=== PATIENT | female | born 1965 | race American Indian/Alaskan Native ===

== ENCOUNTER 2021-10-04 04:39 | Inpatient (IN) | payer MEDICARE, MEDICAID ==
[2021-10-04 07:50] LABS: Basophils % (Auto) 0.2 % (0.0-1.8); Eosinophils # (Auto) 0.1 K/mm3 (0.0-0.4); Eosinophils % (Auto) 1.4 % (0.0-4.3); Hematocrit 26.9 % (30.3-42.9); Hemoglobin 9.2 gm/dl (10.1-14.3); Lymphocytes # (Auto) 1.2 K/mm3 (1.2-5.4); Mean Corpuscular HGB Conc 34 % (30-34); Mean Corpuscular Volume 95 fl (79-97); Monocytes # (Auto) 0.5 K/mm3 (0.0-0.8); Monocytes % (Auto) 10.2 % (0.0-7.3); Platelet Count 162 K/mm3 (140-440); Red Blood Count 2.82 M/mm3 (3.65-5.03); Red Cell Distribution Width 15.5 % (13.2-15.2)
[2021-10-04 08:08] LABS: Albumin 3.9 g/dL (3.9-5); Calcium 9.2 mg/dL (8.4-10.2)
--- NOTE | 2021-10-04 15:21 | Emergency Department Report ---
HPI - General Chief Complaint: Medical Clearance PUI?: No - HPI HPI: This patient is a 56-year-old female with a history of obesity, end-stage renal disease on hemodialysis Wednesday, with left upper extremity AV fistula, presents requesting to undergo dialysis. Patient reports she is visiting from [facility] and has been here for several days. 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 However patient states "they messed up the paperwork and sent the wrong information and so I have not been able to get dialysis." She reports she last underwent dialysis 4 days ago, on Thursday, September 30, 2021. She denies any chest pain shortness of breath difficulty breathing or palpitations. No abdominal pain. No lightheadedness or dizziness. Review of systems otherwise negative. Pain 0 out of 10. ED Past Medical Hx - Past Medical History Previous Medical History?: Yes Hx Hypertension: No Hx Renal Disease: Yes (End-stage renal disease on hemodialysis Wednesday) Additional medical history: "Hypotension" per patient's report - Surgical History Past Surgical History?: No - Family History Family history: no significant - Social History Smoking Status: Never Smoker Substance Use Type: None ED Review of Systems ROS: Stated complaint: NEED DIALYSIS Other details as noted in HPI Comment: All other systems reviewed and negative Constitutional: no symptoms reported Physical Exam - Physical Exam Vital Signs: Vital Signs 10/04/21 10/04/21 10/04/21 04:41 14:32 14:33 Temperature 97.9 F Pulse Rate 106 H Respiratory 18 Rate Blood Pressure 113/82 Blood Pressure 109/49 [Right] O2 Sat by Pulse 100 99 99 Oximetry General: Gen: pt is well appearing, no acute distress HEENT: Normocephalic atraumatic pupils equally round and reactive to light extraocular muscles intact sclera anicteric Neck: Full range of motion, no midline spinal tenderness palpation, no JVD, no carotid bruits, no nuchal rigidity CVS: S1-S2 regular rate and rhythm with no gallops rubs or murmurs, chest wall nontender Pulmonary: Mild rhonchi auscultated on lung examination bilaterally Abdomen: Soft nondistended nontender no guarding or rebound tenderness, no palpable deformities or step-offs, normal active bowel sounds, no hepatosplenomegaly, no pulsatile masses : Deferred Extremities: No cyanosis no clubbing no edema, intact distal peripheral pulses, Integumentary: Skin normal, no petechia no purpura no abscess no lacerations no evidence of trauma no evidence of infection Neuro: Patient is awake alert and oriented to person place time situation, mentating well, cranial nerves II through XII intact, no focal neurodeficits, sensation grossly tact Psych: Calm cooperative, mood affect normal ED Course Vital Signs 10/04/21 10/04/21 10/04/21 04:41 14:32 14:33 Temperature 97.9 F Pulse Rate 106 H Respiratory 18 Rate Blood Pressure 113/82 Blood Pressure 109/49 [Right] O2 Sat by Pulse 100 99 99 Oximetry - Reevaluation(s) Reevaluation #1: 10/04/21 15:21 Gen: pt is well appearing, no acute distress, speaking in full sentences, no d rooling no stridor no respiratory distress, breathing unlabored, nontoxic- appearing HEENT: Normocephalic atraumatic pupils equally round and reactive to light extraocular muscles intact sclera anicteric Neck: Full range of motion, no midline spinal tenderness palpation, no JVD, no carotid bruits, no nuchal rigidity CVS: S1-S2 regular rate and rhythm with no gallops rubs or murmurs, chest wall nontender Pulmonary: Clear to auscultation bilaterally, no wheezes rales or rhonchi Abdomen: Soft nondistended nontender no guarding or rebound tenderness, no palpable deformities or step-offs, normal active bowel sounds, no hepatosplenomegaly, no pulsatile masses : Deferred Extremities: No cyanosis no clubbing no edema, intact distal peripheral pulses, Integumentary: Skin normal, no petechia no purpura no abscess no lacerations no evidence of trauma no evidence of infection Neuro: Patient is awake alert and oriented to person place time situation, mentating well, cranial nerves II through XII intact, no focal neurodeficits, sensation grossly tact Psych: Calm cooperative, mood affect normal - Consultations Consultation #1: 10/04/21 16:24; Case reviewed via telephone with admitting hospitalist Dr. Lisa Lechuga. He verbalized agreement to admit the patient to the hospitalist service for further management ED Medical Decision Making - Lab Data Result diagrams: 10/04/21 07:23 10/04/21 07:23 - Radiology Data Radiology results: report reviewed - Medical Decision Making 56-year-old obese female with a history of end-stage renal disease on hemodialysis, Wednesday, presents requesting hemodialysis st ating that she [place] and has not undergone dialysis for several days. Vital stable. That was already on the chart so abnormal but that there patient is well-appearing on examination. Serum labs as well as chest x- ray results reviewed. Patient will need to undergo hemodialysis. Case was discussed with admitting hospitalist, Dr. Gonzalez. He verbalized agreement to accept the patient to the hospital service for definitive management. Critical care attestation.: If time is entered above; I have spent that time in minutes in the direct care of this critically ill patient, excluding procedure time. ED Disposition Clinical Impression: Hyperkalemia, ESRD (end stage renal disease) on dialysis, Pulmonary vascular congestion Disposition: ADMITTED INPATIENT Is pt being admited?: Yes Does the pt Need Aspirin: No Condition: Stable Referrals: SHWETA CORTES MD [Primary Care Provider] - 3-5 Days
--- NOTE | 2021-10-04 15:59 | XRay Report ---
CHEST 1 VIEW 10/04/2021 3:25 PM INDICATION / CLINICAL INFORMATION: esrd on h/d; eval for pleural effusions. COMPARISON: None available. FINDINGS: SUPPORT DEVICES: None. HEART / MEDIASTINUM: No significant abnormality. LUNGS / PLEURA: There is increase in interstitial markings bilaterally. No pneumothorax. No significa nt pleural fluid is identified. ADDITIONAL FINDINGS: No significant additional findings. IMPRESSION: 1. There is increase in interstitial markings bilaterally consistent with edema. No significant pleur al effusion is identified. Signer Name: Franko Haywood MD Signed: 10/04/2021 3:55 PM Workstation Name: [id number]
--- NOTE | 2021-10-04 20:43 | History and Physical Report ---
History of Present Illness Date of examination: 10/04/21 Date of admission: 10/04/2022 Chief complaint: Shortness of breath for 2 days History of present illness: This patient is a 56-year-old female with a history of obesity, end-stage renal disease on hemodialysis Wednesday, with left upper extremity AV fistula, presents requesting to undergo dialysis. Patient reports she is visiting from [facility] and has been here for several days. She states that her breaker mechanic had arranged for her to undergo dialysis at a local center here in [place]. However patient states "they messed up the paperwork and sent the wrong information and soshe has not been able to get dialysis." She reports she last underwent dialysis 4 days ago, on Thursday, September 30, 2021. She denies any chest pain shortness of breath difficulty breathing or palpitations. No abdominal pain. No lightheadedness or dizziness. Review of systems otherwise negative. Pain 0 out of 10. - Past Medical History --Hypertension: No --Renal Disease: Yes (End-stage renal disease on hemodialysis Wednesday) --Additional medical history: "Hypotension" per patient's report - Surgical History --Past Surgical History?: No - Family History --Family history: no significant - Social History --Smoking Status: Never Smoker --Substance Use Type: None Review of Systems ROS: --Stated complaint: NEED DIALYSIS --Other details as noted in HPI --Comment: All other systems reviewed and negative --Constitutional: no symptoms reported Medications and Allergies Allergies Allergy/AdvReac Type Severity Reaction Status Date / Time No Known Allergies Allergy Verified 10/04/21 04:46 Exam - Constitutional Vitals: Temp Pulse Resp BP Pulse Ox 98.0 F 67 16 113/73 100 10/04/21 19:30 10/04/21 19:30 10/04/21 19:30 10/04/21 19:30 10/04/21 19:30 General appearance: Present: no acute distress, well-nourished - EENT Eyes: Present: PERRL ENT: hearing intact, clear oral mucosa - Neck Neck: Present: supple, normal ROM - Respiratory Respiratory effort: normal Respiratory: bilateral: CTA - Cardiovascular Heart rate: 78 Rhythm: regular Heart Sounds: Present: S1 & S2. Absent: rub, click - Extremities Extremities: no ischemia, pulses intact, pulses symmetrical, No edema Peripheral Pulses: within normal limits - Abdominal General gastrointestinal: Present: soft, non-tender, non-distended, normal bowel sounds Female genitourinary: Present: normal - Integumentary Integumentary: Present: clear, warm, dry - Musculoskeletal Musculoskeletal: gait normal, strength equal bilaterally - Psychiatric Psychiatric: appropriate mood/affect, intact judgment & insight - Neurologic Neurologic: CNII-XII intact, moves all extremities Results - Labs CBC & Chem 7: 10/04/21 07:23 10/04/21 07:23 Labs: Laboratory Last Values WBC 5.1 K/mm3 (4.5-11.0) 10/04/21 07: RBC 2.82 M/mm3 (3.65-5.03) L 10/04/21 07: Hgb 9.2 gm/dl (10.1-14.3) L 10/04/21 07: Hct 26.9 % (30.3-42.9) L 10/04/21 07: MCV 95 fl (79-97) 10/04/21 07:23 MCH 33 pg (28-32) H 10/04/21 07:23 MCHC 34 % (30-34) 10/04/21 07: RDW 15.5 % (13.2-15.2) H 10/04/21 07:23 Plt Count 162 K/mm3 (140-440) 10/04/21 07:23 Lymph % (Auto) 24.0 % (13.4-35.0) 10/04/21 07:23 [place] % (Auto) 10.2 % (0.0-7.3) H 10/04/21 07:23 Eos % (Auto) 1.4 % (0.0-4.3) 10/04/21 07:23 Baso % (Auto) 0.2 % (0.0-1.8) 10/04/21 07: Lymph # (Auto) 1.2 K/mm3 (1.2-5.4) 10/04/21 07:23 [place] # (Auto) 0.5 K/mm3 (0.0-0.8) 10/04/21 07:23 Eos # (Auto) 0.1 K/mm3 (0.0-0.4) 10/04/21 07:23 Baso # (Auto) 0.0 K/mm3 (0.0-0.1) 10/04/21 07:23 Seg Neutrophils % 64.2 % (40.0-70.0) 10/04/21 07:23 Seg Neutrophils # 3.3 K/mm3 (1.8-7.7) 10/04/21 07:23 Sodium 138 mmol/L (137-145) 10/04/21 07:23 Potassium 5.6 mmol/L (3.6-5.0) H 10/04/21 07:23 Chloride 90.4 mmol/L (98-107) L 10/04/21 07:23 Carbon Dioxide 25 mmol/L (22-30) 10/04/21 07:23 Anion Gap 28 mmol/L 10/04/21 07:23 BUN 113 mg/dL (7-17) H 10/04/21 07:23 Creatinine 14.5 mg/dL (0.6-1.2) H 10/04/21 07:23 Estimated GFR 3 ml/min 10/04/21 07:23 BUN/Creatinine Ratio 8 % 10/04/21 07:23 Glucose 87 mg/dL (65-100) 10/04/21 07:23 Calcium 9.2 mg/dL (8.4-10.2) 10/04/21 07:23 Total Bilirubin 0.30 mg/dL (0.1-1.2) 10/04/21 07:23 AST 13 units/L (5-40) 10/04/21 07:23 ALT 9 units/L (7-56) 10/04/21 07:23 Alkaline Phosphatase 124 units/L (35-129) 10/04/21 07:23 Total Protein 7.6 g/dL (6.3-8.2) 10/04/21 07:23 Albumin 3.9 g/dL (3.9-5) 10/04/21 07:23 Albumin/Globulin Ratio 1.1 % 10/04/21 07:23 Short CBC 10/04/21 Range/Units 07: WBC 5.1 (4.5-11.0) K/mm3 Hgb 9.2 L (10.1-14.3) gm/dl Hct 26.9 L (30.3-42.9) % Plt Count 162 (140-440) K/mm3 BMP 10/04/21 07:23 Sodium 138 Potassium 5.6 H Chloride 90.4 L Carbon Dioxide 25 BUN 113 H Creatinine 14.5 H Glucose 87 Calcium 9.2 Liver Function 10/04/21 Range/Units 07:23 Total Bilirubin 0.30 (0.1-1.2) mg/dL AST 13 (5-40) units/L ALT 9 (7-56) units/L Alkaline Phosphatase 124 (35-129) units/L Albumin 3.9 (3.9-5) g/dL Assessment and Plan Advance Directives: Yes (Full code) VTE prophylaxis?: Chemical Plan of care discussed with patient/family: Yes - Patient Problems (1) Hyperkalemia Current Visit: Yes Status: Acute Plan to address problem: Patient was given calcium gluconate and oral Kayexalate in the emergency room Patient due for hemodialysis in a.m. Nephrology consulted (2) ESRD (end stage renal disease) on dialysis Current Visit: Yes Status: Chronic Plan to address problem: Hemodialysis Nephrology consulted (3) Hypertension Current Visit: Yes Status: Chronic Qualifiers: Hypertension type: primary hypertension Qualified Code(s): I10 - Essential (primary) hypertension Plan to address problem: Continue antihypertensives and adjust medications (4) Anemia Current Visit: Yes Status: Chronic Qualifiers: Anemia type: due to chronic kidney disease Plan to address problem: Anemia of chronic disease Epogen as per nephrology (5) DVT prophylaxis Current Visit: Yes Status: Acute Plan to address problem: On heparin and GI prophylaxis (6) Advance care planning Current Visit: Yes Status: Acute Plan to address problem: Disease education conducted, care plan discussed, diagnosis discussed, prognosis discussed, patient acknowledges understanding and agrees with care plan. +30 minutes.
[2021-10-04] MEDS ORDERED: ONDANSETRON 4 MG/2 ML INJ IV PRN (20:46)
[2021-10-04] MEDS ORDERED: ACETAMINOPHEN 325 MG TAB PO PRN (20:46)
[2021-10-04] MEDS ORDERED: MORPHINE 2 MG/1 ML INJ IV PRN (20:53)
[2021-10-04] MEDS ORDERED: oxyCODONE /ACETAMINOPHEN 5-325MG TAB PO PRN (20:53)
[2021-10-04] MEDS ORDERED: SODIUM POLYSTYRENE 15 GM/60 ML ORAL LIQD PO ONE (21:06)
[2021-10-04] MEDS: CALCIUM GLUCONATE 2,000 MG in SODIUM CHLORIDE 0.9% 100 ML IV ONE ×2 (22:45→23:40)
[2021-10-05] MEDS: HEPARIN 5,000 UNIT/1 ML VIAL SUB-Q SCH ×3 (00:05→21:07)
[2021-10-05 06:45] LABS: Calcium 8.9 mg/dL (8.4-10.2)
--- NOTE | 2021-10-05 09:20 | Consultation ---
History of Present Illness - Reason for Consult Consult date: 10/05/21 end stage renal disease - History of Present Illness This is a 56 year old female who presented to the E.R for hemodialysis. Patient reports that she came to [place] from [place] on Wednesday without properly having dialysis arrangement made here in [place] at [facility]. Now patient presents to E.R for dialysis. Patient states her last dialysis was on Wednesday in [place]. Patient is currently stable, no edema and no shortness of breath. States has been on HD for 8 years now due to Hypertension. Has functional Left AVF. We are being consulted for management of this patient's ESRD. Past History Past Medical History: ESRD, hypertension Past Surgical History: Other (Left AVF placement) Social history: no significant social history Family history: no significant family history Medications and Allergies Allergies Allergy/AdvReac Type Severity Reaction Status Date / Time No Known Allergies Allergy Verified 10/04/21 04:46 Active Meds: Active Medications Acetaminophen (Acetaminophen 325 Mg Tab) 650 mg PO Q4H PRN PRN Reason: Pain MILD(1-3)/Fever >100.5/ZUNIGA Heparin Sodium (Porcine) (Heparin 5,000 Unit/1 Ml Vial) 5,000 unit SUB-Q Q12HR [facility] Last Admin: 10/05/21 00:05 Dose: 5,000 unit Morphine Sulfate (Morphine 2 Mg/1 Ml Inj) 2 mg IV Q4H PRN PRN Reason: Pain, Moderate (4-6) Ondansetron HCl (Ondansetron 4 Mg/2 Ml Inj) 4 mg IV Q8H PRN PRN Reason: Nausea And Vomiting Oxycodone/Acetaminophen (Oxycodone /Acetaminophen 5-325mg Tab) 1 tab PO Q6H PRN PRN Reason: Pain, Moderate (4-6) Sodium Chloride (Sodium Chloride 0.9% 10 Ml Flush Syringe) 10 ml IV BID [facility] Last Admin: 10/04/21 23:41 Dose: Not Given Sodium Chloride (Sodium Chloride 0.9% 10 Ml Flush Syringe) 10 ml IV PRN PRN PRN Reason: LINE FLUSH Review of Systems Constitutional: no weight loss, no weight gain, no fever, no chills, no sweats Ears, nose, mouth and throat: no ear pain, no ear discharge, no tinnitis, no decreased hearing, no nose pain, no nasal congestion, no nasal discharge Cardiovascular: no chest pain, no orthopnea, no palpitations, no rapid/irregular heart beat, no edema, no syncope, no lightheadedness, no shortness of breath Respiratory: no cough with sputum, no excessive sputum, no hemoptysis, no shortness of breath Gastrointestinal: no abdominal pain, no nausea, no vomiting, no diarrhea, no constipation, no change in bowel habits Genitourinary Female: no pelvic pain, no flank pain, no menorrhagia, no dysuria, no urinary frequency, no urgency Rectal: no pain, no incontinence, no bleeding Musculoskeletal: no neck stiffness, no neck pain, no shooting arm pain, no arm numbness/tingling, no low back pain Integumentary: no rash, no pruritis, no redness, no sores, no wounds, no jaundice Neurological: no transient paralysis, no paralysis, no weakness, no parathesias, no numbness, no tingling, no seizures Psychiatric: no anxiety, no memory loss, no change in sleep habits, no sleep disturbances, no insomnia, no hypersomnia, no change in appetite Endocrine: no cold intolerance, no heat intolerance, no polyphagia, no excessive thirst, no polydipsia, no polyuria Hematologic/Lymphatic: no easy bruising, no easy bleeding Exam - Vital Signs Vital signs: Vital Signs Temp Pulse Resp BP Pulse Ox 97.9 F 106 H 18 113/82 100 10/04/21 04:41 10/04/21 04:41 10/04/21 04:41 10/04/21 04:41 10/04/21 04:41 - General Appearance General appearance: well-developed, appears stated age EENT: ATNC, PERRL, hearing intact, vision intact Neck: Present: neck supple, trachea midline Respiratory: Decreased Breath Sounds Heart: S1S2 Gastrointestinal: Present: normoactive bowel sounds Integumentary: warm and dry Neurologic: alert and oriented x3 Musculoskeletal: Present: other (No edema) Results - Lab Results 10/04/21 07:23 10/05/21 05:16 Most recent lab results Calcium 8.9 mg/dL (8.4-10.2) 10/05/21 05:16 Assessment and Plan Assessment: End Stage Renal Disease Hypertension Anemia Mild Hyperkalemia, Improved Plan: Hemodialysis ordered for tomorrow morning for UF and clearance Potassium better today at 5.1-ordered Kayexlate 15 gram po x 1 today Low potassium diet Fluid restriction of 1 liter per day Renally dose medications Obtain daily weights Monitor I/O's daily Assess dialysis needs daily Consulted case management to assist patient in completing arrangements for outpatient HD Plan of care reviewed by Dr. Gao
[2021-10-05] MEDS ORDERED: SODIUM POLYSTYRENE 15 GM/60 ML ORAL LIQD PO ONE (10:00)
[2021-10-05] MEDS: MIDODRINE 5 MG TAB PO SCH ×2 (11:06→16:35)
--- NOTE | 2021-10-05 17:02 | Progress Note ---
Assessment and Plan Assessment and plan: #Hyperkalemiaimproving Potassium 5.6--> 5.1. Improvement after medical management. Should improve when patient undergoes hemodialysis. Continue to monitor with repeat BMP. #ESRD on hemodialysis -Access: Left upper extremity fistula -Outpatient schedule: Unknown -HD center: Unknown -Nephrology consulted; appreciate recs. -Renally dose medications and avoid nephrotoxic drugs. Renal diet. #Anemia of chronic disease Hemoglobin currently stable. Transfuse if hemoglobin <7 or patient becomes symptomatic. #Hypertension Continue home antihypertensives #Obesity #Weight loss counseling #Exercise counseling - BMI 31.6 - Counseled patient on the importance of weight loss, incorporating exercise, and dietary changes (lean meats, fresh fruits and vegetables, and water intake). Patient expresses understanding. - Time: +15 min #Advanced care planning -Disease education conducted, care plan discussed, diagnoses discussed, prognosis discussed, and patient acknowledges understanding with care plan -Time: +30 min #Discharge planning - Patient is pending hemodialysis. - Case management has been made aware. - Discharge is tentatively tomorrow after hemodialysis. Disposition Plan: Continue medical management Total Time Spent with Patient (Minutes): 45 min History Interval history: No acute events overnight. Hospitalist Physical - Constitutional Vitals: Temp Pulse Resp BP Pulse Ox 97.8 F 67 18 94/60 92 10/05/21 04:54 10/05/21 13:00 10/05/21 09:53 10/05/21 08:19 10/05/21 09:53 General appearance: Present: no acute distress, well-nourished, obese - EENT Eyes: Present: PERRL, EOM intact ENT: hearing intact, clear oral mucosa, dentition normal - Neck Neck: Present: supple, normal ROM - Respiratory Respiratory effort: normal Respiratory: bilateral: CTA - Cardiovascular Rhythm: regular Heart Sounds: Present: S1 & S2 - Extremities Extremities: no ischemia, pulses intact, pulses symmetrical, No edema, normal temperature, normal color, abnormal (LUE AV fistula with palpable thrill) Peripheral Pulses: within normal limits - Abdominal General gastrointestinal: soft, non-tender, non-distended, normal bowel sounds - Integumentary Integumentary: Present: clear, warm, dry - Psychiatric Psychiatric: appropriate mood/affect, intact judgment & insight, memory intact, cooperative - Neurologic Neurologic: CNII-XII intact, moves all extremities - Allied Health Allied health notes reviewed: nursing Results - Labs CBC & Chem 7: 10/04/21 07:23 10/05/21 05:16 Labs: Laboratory Last Values WBC 5.1 K/mm3 (4.5-11.0) 10/04/21 07:23 RBC 2.82 M/mm3 (3.65-5.03) L 10/04/21 07:23 Hgb 9.2 gm/dl (10.1-14.3) L 10/04/21 07:23 Hct 26.9 % (30.3-42.9) L 10/04/21 07:23 MCV 95 fl (79-97) 10/04/21 07:23 MCH 33 pg (28-32) H 10/04/21 07:23 MCHC 34 % (30-34) 10/04/21 07:23 RDW 15.5 % (13.2-15.2) H 10/04/21 07:23 Plt Count 162 K/mm3 (140-440) 10/04/21 07:23 Lymph % (Auto) 24.0 % (13.4-35.0) 10/04/21 07:23 [place] % (Auto) 10.2 % (0.0-7.3) H 10/04/21 07:23 Eos % (Auto) 1.4 % (0.0-4.3) 10/04/21 07:23 Baso % (Auto) 0.2 % (0.0-1.8) 10/04/21 07:23 Lymph # (Auto) 1.2 K/mm3 (1.2-5.4) 10/04/21 07:23 [place] # (Auto) 0.5 K/mm3 (0.0-0.8) 10/04/21 07:23 Eos # (Auto) 0.1 K/mm3 (0.0-0.4) 10/04/21 07:23 Baso # (Auto) 0.0 K/mm3 (0.0-0.1) 10/04/21 07:23 Seg Neutrophils % 64.2 % (40.0-70.0) 10/04/21 07:23 Seg Neutrophils # 3.3 K/mm3 (1.8-7.7) 10/04/21 07:23 Sodium 140 mmol/L (137-145) 10/05/21 05:16 Potassium 5.1 mmol/L (3.6-5.0) H 10/05/21 05:16 Chloride 94.2 mmol/L (98-107) L 10/05/21 05:16 Carbon Dioxide 23 mmol/L (22-30) 10/05/21 05:16 Anion Gap 28 mmol/L 10/05/21 05:16 BUN 120 mg/dL (7-17) H 10/05/21 05:16 Creatinine 16.2 mg/dL (0.6-1.2) H 10/05/21 05:16 Estimated GFR 3 ml/min 10/05/21 05:16 BUN/Creatinine Ratio 7 % 10/05/21 05:16 Glucose 94 mg/dL (65-100) 10/05/21 05:16 Calcium 8.9 mg/dL (8.4-10.2) 10/05/21 05:16 Total Bilirubin 0.30 mg/dL (0.1-1.2) 10/04/21 07:23 AST 13 units/L (5-40) 10/04/21 07:23 ALT 9 units/L (7-56) 10/04/21 07:23 Alkaline Phosphatase 124 units/L (35-129) 10/04/21 07:23 Total Protein 7.6 g/dL (6.3-8.2) 10/04/21 07:23 Albumin 3.9 g/dL (3.9-5) 10/04/21 07:23 Albumin/Globulin Ratio 1.1 % 10/04/21 07:23 Harris/IV: Voiding Method Toilet Active Medications - Current Medications Current Medications: Generic Name Dose Route Start Last Admin Trade Name Freq PRN Reason Stop Dose Admin Acetaminophen 650 mg 10/04/21 20:46 Acetaminophen 325 Mg Tab PO Q4H PRN Pain MILD(1-3)/Fever >100.5/ZUNIGA Heparin Sodium (Porcine) 5,000 unit 10/04/21 22:00 10/05/21 09:54 Heparin 5,000 Unit/1 Ml Vial SUB-Q 5,000 unit Q12HR SARAVANAN Administration Midodrine 5 mg 10/05/21 12:00 10/05/21 16:35 Midodrine 5 Mg Tab PO 5 mg TID@0800,1200,1600 SARAVANAN Administration Morphine Sulfate 2 mg 10/04/21 20:53 Morphine 2 Mg/1 Ml Inj IV Q4H PRN Pain, Moderate (4-6) Ondansetron HCl 4 mg 10/04/21 20:46 Ondansetron 4 Mg/2 Ml Inj IV Q8H PRN Nausea And Vomiting Oxycodone/Acetaminophen 1 tab 10/04/21 20:53 Oxycodone /Acetaminophen 5-325mg Tab PO Q6H PRN Pain, Moderate (4-6) Sodium Chloride 10 ml 10/04/21 22:00 10/05/21 09:55 Sodium Chloride 0.9% 10 Ml Flush Syringe IV 10 ml BID SARAVANAN Administration Sodium Chloride 10 ml 10/04/21 20:46 Sodium Chloride 0.9% 10 Ml Flush Syringe IV PRN PRN LINE FLUSH
--- NOTE | 2021-10-06 04:12 | Discharge Summary ---
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 She is visiting from [place]. Primary care physician: SHWETA CORTES Hospitalization Reason for admission: Hyperkalemia Condition: Stable Pertinent studies: Reviewed. Procedures: None. Hospital course: The patient is a 56-year-old female past medical history of ESRD on hemodialysis (TTSleft upper extremity AV fistula), anemia of chronic disease, hypertension, and obesity who presented to the ED to obtain hemodialysis after clerical errors at her intended hemodialysis center stalled her ability to obtain HD. The patient describes being on vacation to see her daughter and being under the impression that her hemodialysis paperwork was properly processed to allow her to obtain HD while in town; however, there were clerical errors leading to her not getting HD. On presentation in the ED, the patient was found to be hemodynamically stable with mild tachycardia to 106. Nephrology was consulted for further management. Patient underwent hemodialysis, and the patient is medically clear for discharge. Disposition: 01 HOME / SELF CARE / HOMELESS Final Discharge Diagnosis (Prints w/discharge instructions): Hyperkalemia, ESRD on hemodialysis, hypertension, anemia of chronic disease, obesity. Time spent for discharge: 45 min Core Measure Documentation - Palliative Care Palliative Care/ Comfort Measures: Not Applicable - Core Measures Any of the following diagnoses?: none Exam - Constitutional Vitals: Temp Pulse Resp BP Pulse Ox 97.3 F L 75 16 111/68 99 10/06/21 01:04 10/05/21 23:52 10/05/21 20:07 10/05/21 23:52 10/05/21 23:52 General appearance: Present: no acute distress, well-nourished, obese - EENT Eyes: Present: PERRL, EOM intact ENT: hearing intact, clear oral mucosa, dentition normal - Neck Neck: Present: supple, normal ROM - Respiratory Respiratory effort: normal Respiratory: bilateral: CTA - Cardiovascular Rhythm: regular Heart Sounds: Present: S1 & S2 - Extremities Extremities: no ischemia, pulses intact, pulses symmetrical, No edema, normal temperature, normal color, abnormal (LUE AV fistula with palpable thrill) Peripheral Pulses: within normal limits - Abdominal General gastrointestinal: Present: soft, non-tender, non-distended, normal bowel sounds Female genitourinary: Present: deferred - Rectal Rectal Exam: deferred - Integumentary Integumentary: Present: clear, warm, dry - Musculoskeletal Musculoskeletal: strength equal bilaterally - Psychiatric Psychiatric: appropriate mood/affect, intact judgment & insight, memory intact, cooperative - Neurologic Neurologic: CNII-XII intact, moves all extremities - Allied Health Allied health notes reviewed: nursing Plan Activity: no restrictions Diet: low salt, renal Additional Instructions: The patient is a 56-year-old female past medical history of ESRD on hemodialysis (TTSleft upper extremity AV fistula), anemia of chronic disease, hypertension, and obesity who presented to the ED to obtain hemodialysis after clerical errors at her intended hemodialysis center stalled her ability to obtain HD. The patient describes being on vacation to see her daughter and being under the impression that her hemodialysis paperwork was properly processed to allow her to obtain HD while in town; however, there were clerical errors leading to her not getting HD. On presentation in the ED, the patient was found to be hemodynamically stable with mild tachycardia to 106. Nephrology was consulted for further management. Patient underwent hemodialysis, and the patient is medically clear for discharge. Care Plan Goals: Patient is medically cleared for discharge. Assessment: The patient is a 56-year-old female past medical history of ESRD on hemodialysis (TTSleft upper extremity AV fistula), anemia of chronic disease, hypertension, and obesity who presented to the ED to obtain hemodialysis after clerical errors at her intended hemodialysis center stalled her ability to obtain HD. The patient describes being on vacation to see her daughter and being under the impression that her hemodialysis paperwork was properly processed to allow her to obtain HD while in town; however, there were clerical errors leading to her not getting HD. On presentation in the ED, the patient was found to be hemodynamically stable with mild tachycardia to 106. Nephrology was consulted for further management. Patient underwent hemodialysis, and the patient is medically clear for discharge. Follow up with: SHWETA CORTES MD [Primary Care Provider] - 3-5 Days Prescriptions: Midodrine [Proamatine] 5 mg PO TID@0800,1200,1600 #90 tablet
[2021-10-06 06:33] LABS: Calcium 8.4 mg/dL (8.4-10.2)
--- NOTE | 2021-10-06 10:08 | Progress Note ---
Assessment and Plan Assessment: End Stage Renal Disease Hypertension Anemia Mild Hyperkalemia, Improved Plan: Hemodialysis today for UF and clearance Low potassium diet Fluid restriction of 1 liter per day Renally dose medications Obtain daily weights Monitor I/O's daily Assess dialysis needs daily Patient came to [place] from [place] without properly arranging/securing HD chair at [facility], consulted case management to assist patient in completing arrangements for outpatient HD Plan of care reviewed by Dr. Gao Subjective Date of service: 10/06/21 Principal diagnosis: ESRD Interval history: Patient seen lying in bed. Reviewed renal plan for HD today. Objective - Vital Signs Vital signs: Vital Signs - 12hr 10/05/21 10/05/21 10/06/21 23:51 23:52 01:04 Temperature 94.1 F L 97.3 F L Pulse Rate 75 75 Blood Pressure 111/68 [Right] O2 Sat by Pulse 99 Oximetry 10/06/21 04:32 Temperature 97.6 F Pulse Rate 77 Blood Pressure 117/78 [Right] O2 Sat by Pulse 100 Oximetry - General Appearance General appearance: well-developed, appears stated age EENT: ATNC, PERRL, hearing intact, vision intact Neck: no JVD, supple Respiratory: Present: Decreased Breath Sounds Cardiology: S1S2 Gastrointestinal: normoactive bowel sounds Integumentary: warm and dry Neurologic: alert and oriented x3 Musculoskeletal: other (No edema) - Lab 10/04/21 07:23 10/06/21 05:18 Most recent lab results Calcium 8.4 mg/dL (8.4-10.2) 10/06/21 05:18 Phosphorus 10.20 mg/dL (2.5-4.5) H 10/06/21 05:18 Medications & Allergies - Medications Allergies/Adverse Reactions: Allergies No Known Allergies Allergy (Verified 10/04/21 04:46) Home Medications: Home Medications Medication Instructions Recorded Confirmed Last Taken Type Midodrine [Proamatine] 5 mg PO TID@0800,1200,1600 #90 10/06/21 Unknown Rx tablet Active Medications: Generic Name Dose Route Start Last Admin Trade Name Freq PRN Reason Stop Dose Admin Acetaminophen 650 mg 10/04/21 20:46 Acetaminophen 325 Mg Tab PO Q4H PRN Pain MILD(1-3)/Fever >100.5/ZUNIGA Heparin Sodium (Porcine) 5,000 unit 10/04/21 22:00 10/05/21 21:07 Heparin 5,000 Unit/1 Ml Vial SUB-Q 5,000 unit Q12HR SARAVANAN Administration Midodrine 5 mg 10/05/21 12:00 10/05/21 16:35 Midodrine 5 Mg Tab PO 5 mg TID@0800,1200,1600 SARAVANAN Administration Morphine Sulfate 2 mg 10/04/21 20:53 Morphine 2 Mg/1 Ml Inj IV Q4H PRN Pain, Moderate (4-6) Ondansetron HCl 4 mg 10/04/21 20:46 Ondansetron 4 Mg/2 Ml Inj IV Q8H PRN Nausea And Vomiting Oxycodone/Acetaminophen 1 tab 10/04/21 20:53 Oxycodone /Acetaminophen 5-325mg Tab PO Q6H PRN Pain, Moderate (4-6) Sevelamer Carbonate 2,400 mg 10/06/21 11:30 Sevelamer Carbonate 800 Mg Tab PO AC SARAVANAN Sodium Chloride 10 ml 10/04/21 22:00 10/05/21 21:07 Sodium Chloride 0.9% 10 Ml Flush Syringe IV 10 ml BID SARAVANAN Administration Sodium Chloride 10 ml 10/04/21 20:46 Sodium Chloride 0.9% 10 Ml Flush Syringe IV PRN PRN LINE FLUSH
[2021-10-06] MEDS: MIDODRINE 5 MG TAB PO SCH ×3 (10:49→16:35)
[2021-10-06] MEDS: HEPARIN 5,000 UNIT/1 ML VIAL SUB-Q SCH (10:49)
[2021-10-06] MEDS: SEVELAMER CARBONATE 800 MG TAB PO SCH ×2 (12:22→16:35)
[2021-10-06 16:14] LABS: Hepatitis B Surface Antigen Non-Reactive (Negative); Hepatitis C Virus Antibody Non-Reactive (NonReactive)
[2021-10-07 02:00] VITALS: BP 103/61
== END 2021-10-06 22:02 | disposition home or self-care (01) | DRG 640 ==
LOC: ED 04:39 → 4A 20:47
PROVIDERS: ADMIT Internal Medicine; ATTEND Student in an Organized Health Care Education/Training Program
PROC: 5A1D70Z Performance of Urinary Filtration, Intermittent, Less than 6 Hours Per Day (ICD-10-PCS; principal; 2021-10-06)
DX: E87.5 Hyperkalemia (principal); N18.6 End stage renal disease; I12.0 Hypertensive chronic kidney disease with stage 5 chronic kidney disease or end stage renal disease; D64.9 Anemia, unspecified; E66.9 Obesity, unspecified; Z68.31 Body mass index [BMI] 31.0-31.9, adult; Z99.2 Dependence on renal dialysis
CPT/HCPCS: 36415; 71045; 80048; 80053; 80074; 84100; 85025; G0378; J0610; J1644